=== PATIENT | male | born 1990 | race Caucasian/White ===

== ENCOUNTER 2019-12-27 12:15 | Emergency (ER) | payer MEDICAID ==
[~2019-12-27] VITALS: Ht 188 cm; Wt 72.0 kg
[2019-12-27] MEDS ORDERED: ondansetron/PF 4mg/2ml inj IV ONE (12:25)
[2019-12-27] MEDS ORDERED: LORazepam 2 mg/ml vial IV ONE (12:25)
[2019-12-27] MEDS ORDERED: normal saline 1000ML IV soln IVB ONE ×2 (12:25→13:55)
--- NOTE | 2019-12-27 12:48 | NUR ---
PT IS SLEEPING, RESP EVEN AND UNLABORED, NO N/V, ATIVAN AND ZOFRAN NOT GIVEN AT THIS TIME
--- NOTE | 2019-12-27 13:38 | NUR ---
PT CONTINUES TO REST QUIETLY ON GURNEY, [place], GIRLFRIEND IS DRIVING FROM [place] TO PICK PT UP
--- NOTE | 2019-12-27 13:55 | NUR ---
pt is too sleepy to discharge safely, will continue to monitor, cupola charger insulation and Colleen JIMENEZ aware
--- NOTE | 2019-12-27 14:20 | NUR ---
2ND LITER INFUSING, PT CONTINUES TO SLEEP, RESP EVEN AND UNLABORED
--- NOTE | 2019-12-27 15:28 | NUR ---
PT CONTINUES TO REST QUIETLY ON GURNEY, GAVE PT BLANKET
--- NOTE | 2019-12-27 16:34 | NUR ---
PT SLEEPING, RESP EVEN AND UNLABORED
--- NOTE | 2019-12-27 17:30 | NUR ---
PT AMB WITH STEADY GAIT TO RESTROOM, PT IS CRYING, "I WANT TO STAY HERE UNTIL MY GIRLFRIEND COMES", DR HOLGUIN AT BEDSIDE TO EVAL PT
--- NOTE | 2019-12-27 17:44 | NUR ---
NOTE CORRECTION: LAST PART OF ABOVE NOTE REGARDING DR OHLFS IS ON THE WRONG PT
--- NOTE | 2019-12-27 18:09 | NUR ---
PT'S GIRLFRIEND AWARE PT IS BEING DC'D AND WILL BE WAITING OUTSIDE OF [facility]
[2019-12-27 18:17] VITALS: BP 114/76
== END 2019-12-27 18:18 | disposition home or self-care (01) ==
LOC: ER 12:17
DX: F41.9 Anxiety disorder, unspecified (principal); F19.10 Other psychoactive substance abuse, uncomplicated; F15.90 Other stimulant use, unspecified, uncomplicated; F11.90 Opioid use, unspecified, uncomplicated; R11.0 Nausea
CPT/HCPCS: 99285; J7030; 99283